=== PATIENT | male | born 1975 | race Caucasian/White ===

== ENCOUNTER 2016-09-17 15:45 | Emergency (ER) | payer OTHER ==
[~2016-09-17] VITALS: Ht 170.2 cm; Wt 106.8 kg
[2016-09-17 15:48] VITALS: BP 150/101; PULSE 104; TEMP 98.5
[2016-09-17] MEDS ORDERED: PERCOCET 325 MG1 TA2 PO (18:31)
[2016-09-17] MEDS ORDERED: CEPHALEXIN500 M1 PO (18:31)
== END 2016-09-17 18:48 | disposition home or self-care (01) ==
LOC: COL.ER 15:45
DX: S61.214A Laceration without foreign body of right ring finger without damage to nail, initial encounter (principal); S61.210A Laceration without foreign body of right index finger without damage to nail, initial encounter; S62.634A Displaced fracture of distal phalanx of right ring finger, initial encounter for closed fracture; W55.22XA Struck by cow, initial encounter; W23.0XXA Caught, crushed, jammed, or pinched between moving objects, initial encounter; Y93.K9 Activity, other involving animal care
CPT/HCPCS: J0690; J2405; J3010